=== PATIENT | male | born 1995 | race African-American/Black ===

== ENCOUNTER 2016-08-05 10:49 | Emergency (ER) | payer SELFPAY ==
[~2016-08-05] VITALS: Ht 167.6 cm; Wt 56.4 kg
[~2016-08-05 10:49] MED LIST: DICY10 PO
[2016-08-05 10:51] VITALS: BP 122/65; PULSE 92; RESP 20; TEMP 100.3; O2SAT 97
--- NOTE | 2016-08-05 11:27 | PD ---
HPI Chief Complaint: Cold / Flu Symptoms Time Seen by Provider: 11:27 Travel History International Travel<30 days: No Contact w/Intl Traveler<30days: No Traveled to known affect area: No History of Present Illness HPI 20-year-old male presents to the emergency department with complaint of fever, cough, sore throat, nasal congestion, headache, body aches 4 days. He has not taken his temperature at home but has felt feverish with chills. Denies chest pain, shortness of breath. Denies lump and throat, unusual drooling, difficulty swallowing. Reports ear pressure. Denies abdominal pain, nausea, vomiting. Has tried taking DayQuil and NyQuil with no relief of symptoms. When of his coworkers are sick with similar symptoms but they got better quickly. Denies receiving the flu vaccine. No known aggravating or relieving factors. Denies past medical history. No known allergies. No other modifying factors or associated signs and symptoms. PFSH Past Medical History Hx Anticoagulant Therapy: No Bipolar Disorder: Yes Cardiovascular Problems: No Chemotherapy: No Cerebrovascular Accident: No Diabetes: No Respiratory: No Past Surgical History Abdominal Surgery: Yes (HIATAL AND INGUINAL HERNIA REPAIR) Social History Alcohol Use: Yes (OCCAS) Tobacco Use: Yes (1/2 PPD) Substance Use: Yes (MARIJUANA) Allergies-Medications (Allergen,Severity, Reaction): Coded Allergies: No Known Allergies (Unverified , 06/26/16) Reported Meds & Prescriptions Reported Meds & Active Scripts Active Bentyl (Dicyclomine HCl) 10 Mg Cap 10 Mg PO TID 3 Days Review of Systems Except as stated in HPI: all other systems reviewed are Neg Physical Exam Narrative GENERAL: Well-nourished, well-developed male patient, in no acute distress; febrile SKIN: Warm and dry. No rash. HEAD: Atraumatic. Normocephalic. EYES: Pupils equal and round at 3 mm with brisk reaction. No scleral icterus. No injection or drainage. PERRLA. ENT: Mucosa pink and moist. Oral pharynx with erythema; without edema or exudates. No uvular edema. No uvular, palatal, or tonsillar deviation. Airway patent. EARS: Bilateral pinnae and external canals appear within normal limits. Bilateral tympanic membranes without erythema, dullness or perforation. NECK: Trachea midline. No lymphadenopathy. CARDIOVASCULAR: Regular rate and rhythm. No murmur appreciated. RESPIRATORY: No accessory muscle use. Clear to auscultation. Breath sounds equal bilaterally. GASTROINTESTINAL: Abdomen soft, non-tender, nondistended. Hepatic and splenic margins not palpable. Bowel sounds are active 4 quadrants. MUSCULOSKELETAL: No obvious deformities. No clubbing. No cyanosis. No edema. NEUROLOGICAL: Awake and alert. Oriented 3. No obvious cranial nerve deficits. Motor grossly within normal limits. Normal speech. Moves all extremities. 5/5 strength to all extremities. PSYCHIATRIC: Appropriate mood and affect; insight and judgment normal. Data Data Last Documented VS Vital Signs Date Time Temp Pulse Resp B/P Pulse Ox O2 Delivery O2 Flow Rate FiO2 08/05/16 10:51 100.3 92 20 122/65 97 Room Air Orders Influenzae A/B Antigen (08/05/16 11:28) Ibuprofen (Motrin) (08/05/16 11:30) Group A Rapid Strep Screen (08/05/16 11:28) Chest, Single Ap (08/05/16 11:32) Strep Culture (Group A) (08/05/16 11:41) MDM Medical Decision Making Medical Screen Exam Complete: Yes Emergency Medical Condition: Yes Medical Record Reviewed: Yes Differential Diagnosis Strep pharyngitis, pneumonia, influenza Narrative Course 28-year-old male with flulike symptoms for the past 4 days. Febrile with 100.3 fever in the ER. Patient is nontoxic-appearing although he does not appear to feel well. Vital signs are otherwise stable. Ibuprofen administered in the ER. Influenza, strep pharyngitis, chest x-ray ordered. 1222: Chest x-ray with no acute findings. 1223: Negative for strep pharyngitis. Negative for influenza. Amoxicillin prescribed for home for possible upper respiratory infection. Ibuprofen prescribed for home. Discussed symptomatic management with patient. Patient agrees with the plan. Patient is medically cleared and stable for discharge. Discussed reasons to return to the emergency department. Instructed patient to follow up with primary care provider. Patient agrees with treatment plan. The patients vital signs are stable and the patient is stable for outpatient follow- up and treatment. Patient discharged home, stable and in no acute distress. Diagnosis Primary Impression: Upper respiratory infection Qualified Code: J06.9 - Upper respiratory tract infection, unspecified type Referrals: Primary Care Physician Patient Instructions: Cold Symptoms (ED), General Instructions, Safe Use of Cough and Cold Medicines (ED), Upper Respiratory Infection (ED) Departure Forms: Tests/Procedures, Work Release Enter return to work date: Aug 07, 2016 Additional Instructions: Ibuprofen or Tylenol as directed and as needed to reduce fever/pain Get plenty of sleep/rest Drink plenty of fluids to prevent dehydration, suck as Gatorade [place] diet to encourage nutrition such as crackers, fruit, applesauce, toast, soup etc. Use an air humidifier/turn off ceiling fans Follow-up with your primary care provider Return immediately to the emergency department with worsening of symptoms Med/Other Pt SpecificInfo: Prescription(s) given Scripts Amoxicillin 500 Mg [id number] Mg PO BID 10 Days Ref 0 Prov:Kate Villalobos 08/05/16 Ibuprofen 800 Mg [id number] Mg PO Q6HR PRN (PAIN) #30 TAB Ref 0 Prov:Kate Villalobos 08/05/16 Disposition: 01 DISCHARGE HOME Condition: Stable Kate Villalobos Aug 05, 2016 11:27
[2016-08-05] MEDS ORDERED: IBUPROFEN 800 MG TAB PO ONE (11:30)
--- NOTE | 2016-08-05 12:16 | RADRPT ---
EXAM DATE/TIME: 08/05/2016 11:32 [facility] COMPARISON: CHEST SINGLE AP, June 06, 2014, 0:15. INDICATIONS : Shortness of breath, fever, and body aches. MEDICAL HISTORY : None. SURGICAL HISTORY : None. ENCOUNTER: Initial ACUITY: 3 days PAIN SCORE: 0/10 LOCATION: Bilateral chest FINDINGS: A single view of the chest demonstrates the lungs to be symmetrically aerated without evidence of mas s, infiltrate or effusion. The cardiomediastinal contours are unremarkable. Osseous structures are intact. CONCLUSION: Normal examination. Cierra Priest MD on August 05, 2016 at 12:15 Board Certified Radiologist. This report was verified electronically.
[2016-08-05] MEDS ORDERED: AMOX500T PO (12:26)
[2016-08-05] MEDS ORDERED: IBUP800T23 PO (12:26)
[2016-08-05 12:41] VITALS: RESP 18
== END 2016-08-05 12:53 | disposition home or self-care (01) ==
LOC: NEPB 10:49
DX: J06.9 Acute upper respiratory infection, unspecified (principal); R50.9 Fever, unspecified; R05 Cough; M79.1 Myalgia; F17.200 Nicotine dependence, unspecified, uncomplicated; Z86.59 Personal history of other mental and behavioral disorders
CPT/HCPCS: 71010; 87081; 87804; 87880; 99283